=== PATIENT | male | born 1965 | race Caucasian/White ===

== ENCOUNTER 2025-06-03 15:43 | Emergency (ER) | payer OTHER ==
[~2025-06-03] VITALS: Ht 177.8 cm; Wt 98.2 kg
--- NOTE | 2025-06-03 15:52 | ERN ---
ED Note History of Present Illness Stated Complaint: WOUND CHECK TO RIGHT FOOT Chief Complaint: Wound Check Time Seen by MD: 15:45 Dictation: PATIENT IS A 59-YEAR-OLD MALE HERE FROM HIS PRIMARY CARE DOCTOR'S OFFICE WITH COMPLAINTS OF AN ULCER TO THE RIGHT MEDIAL MALLEOLAR LEG FOOT FOR THE LAST TWO WEEKS. NO FEVER NO CHILLS NO NAUSEA VOMITING. HE STATES HE HAD NORMALLY DOES NOT GO TO DOCTORS IN WENT TO A DOCTOR LAST WEEK AND JUST DISCOVERED HE HAS A TYPE 2 DIABETIC HAS A HIGH CHOLESTEROL AND HYPERTENSION. NO FEVER NO CHILLS. PATIENT HAS A STAGE II ULCER THAT IS GRANULATING WITH A DRY WOUND BED TO THE RIGHT MEDIAL MALLEOLAR. WE WILL FOLLOW UP Allergies: Coded Allergies: No Known Allergies (Unverified Allergy, Unknown, 06/03/25) Home Meds Active Scripts Clindamycin HCl (Clindamycin HCl) 300 Mg Capsule, 1 CAP PO QID for 10 Days, #40 CAP 0 Refills Prov:SHARMILA GAGNON ESCROW REPRESENTATIVE 06/03/25 Past Medical History RN Note Reviewed/Agreed w/PFSH: Yes Review of System Dictation CONSTITUTIONAL: NEGATIVE EXCEPT FOR HPI HEAD/FACE: NEGATIVE EXCEPT FOR HPI EENT: NEGATIVE EXCEPT FOR HPI RESPIRATORY: NEGATIVE EXCEPT FOR HPI GASTROINTESTINAL/ABDOMINAL: NEGATIVE EXCEPT FOR HPI GENITOURINARY: NEGATIVE EXCEPT FOR HPI MUSCULOSKELETAL: NEGATIVE EXCEPT FOR HPI INTEGUMENTARY: NEGATIVE EXCEPT FOR HPI RIGHT MEDIAL MALLEOLAR STAGE II DIABETIC ULCER NEUROLOGICAL/PSYCH: NEGATIVE EXCEPT FOR HPI HEMATOLOGIC/LYMPHATIC: NEGATIVE EXCEPT FOR HPI ALL SYSTEMS NEGATIVE, EXCEPT NOTED ABOVE. 13 POINT REVIEW OF SYSTEMS ASSESSED AND ALL NEGATIVE EXCEPT FOR ABOVE. Initial Vital Sign VS Vital Signs Date Time Temp Pulse Resp B/P (MAP) Pulse Ox O2 Delivery O2 Flow Rate FiO2 06/03/25 15:45 98.2 79 16 153/84 97 Room Air 0 06/03/25 19:58 21 Physical Exam Dictation VITAL SIGNS REVIEWED GENERAL APPEARANCE: ALERT, ORIENTED X 3, NO ACUTE DISTRESS, WELL DEVELOPED, NOURISHED. NO PAIN HEAD AND FACE: NON-TRAUMATIC. EYES: PERRL, PINK CONJUNCTIVAS, EYELID NO TRAUMA, ANTERIOR CHAMBER WITH ARCUS SENILIS. EARS: PINNAS INTACT AND NO SIGNS OF TRAUMA OR ERYTHEMA EAR CANALS CLEAR AND NO DISCHARGE TM NO ERYTHEMA NOSE: NO DISCHARGE, NO BLEEDING. OROPHARYNX: MOUTH NORMAL, TONGUE PINK, PHARYNX CLEAR,NO ERYTHEMA, TONSILS NO EXUDATES, NO ABSCESSES NOTED, MUCOUS MEMBRANE MOIST NECK: SUPPLE, NON-TENDER, NO THYROMEGALY, NO MASSES, NO JVD, NO BRUITS BREAST:DEFERRED CHEST:NO TENDERNESS, NO CREPITUS, NO PARADOXICAL MOVEMENT, NO RETRACTIONS LUNGS:CLEAR, WELL-VENTILATED, SYMMETRIC, NO RALES, NO WHEEZING, NO RHONCHI, NO STRIDOR, GOOD BREATH SOUNDS BILATERALLY HEART: REGULAR RATE, REGULAR RHYTHM, NO MURMUR, NO GALLOPS VASCULAR: NO PERIPHERAL EDEMA, ABDOMEN: SOFT, POSITIVE BOWEL SOUNDS, NONDISTENDED, NO GUARDING, NONTENDER, NO REBOUND, NO MASSES NO HEPATOMEGALY, NO SPLENOMEGALY, NO ARREOLA'S SIGN, NO HERNIAS. RECTAL: DEFERRED GENITAL: DEFERRED NEUROLOGICAL: NORMAL SPEECH, MOTOR FUNCTION INTACT, SENSORY FUNCTION INTACT MUSCULOSKELETAL: NECK NONTENDER, FULL RANGE OF MOTION, BACK NONTENDER, FULL RANGE OF MOTION, EXTREMITIES: NONTENDER, FULL RANGE OF MOTION SKIN: COLOR X 3 CM DIABETIC TO RIGHT MEDIAL MALLEOLUS. WOUND BED IS DRY. LYMPHATIC: DEFERRED Results (Laboratory/Radiology) Laboratory/Radiology Laboratory Tests Test 06/03/25 16:15 06/03/25 19:30 06/03/25 19:49 White Blood Count 7.0 K/uL (4.8-10.8) Red Blood Count 5.20 MIL/uL (4.50-6.20) Hemoglobin 17.2 g/dL (14.0-18.0) Hematocrit 49.4 % (42-54) Mean Corpuscular Volume 95.0 fL (79-99) Mean Corpuscular Hemoglobin 33.1 pg (27.0-33.0) H Mean Corpuscular Hemoglobin Concent 34.8 g/dL (32.0-36.0) Red Cell Distribution Width 13.3 % (11.0-15.5) Platelet Count 157 K/uL (130-400) Mean Platelet Volume 11.0 fL (7.5-10.5) H Immature Granulocyte % (Auto) 0.3 % (0-1) Neutrophils (%) (Auto) 65.4 % (40.0-77.0) Lymphocytes (%) (Auto) 25.3 % (21.0-51.0) Monocytes (%) (Auto) 7.4 % (3.0-13.0) Eosinophils (%) (Auto) 0.9 % (0.0-8.0) Basophils (%) (Auto) 0.7 % (0.0-5.0) Neutrophils # (Auto) 4.6 K/uL (1.8-7.7) Lymphocytes # (Auto) 1.8 K/uL (1.0-4.8) Monocytes # (Auto) 0.5 K/uL (0.1-1.0) Eosinophils # (Auto) 0.06 K/uL (0.00-0.70) Basophils # (Auto) 0.05 K/uL (0.00-0.20) Absolute Immature Granulocyte (auto 0.02 K/uL (0-1) Nucleated Red Blood Cells 0.0 % (0.0-0.19) Sodium Level 132 mmol/L (136-145) L Potassium Level 4.1 mmol/L (3.5-5.1) Chloride Level 94 mmol/L (101-111) L Carbon Dioxide Level 28 mmol/L (21-32) Blood Urea Nitrogen 16 mg/dL (7-18) Creatinine 1.4 mg/dL (0.5-1.3) H Glomerular Filtration Rate Calc 58 mL/min (>90) Random Glucose 193 mg/dL (70-105) H Lactic Acid Level 3.9 mmol/L (0.8-2.5) H 2.5 mmol/L (0.8-2.5) Total Calcium 9.6 mg/dL (8.5-10.1) Urine Color YELLOW (YELLOW) Urine Appearance CLEAR (CLEAR) Urine pH 6.0 (5.0-8.0) Urine Specific [place] 1.021 (1.001-1.031) Urine Protein 30 mg/dL (NEGATIVE) H Urine Glucose (UA) 70 mg/dL (NEGATIVE) H Urine Ketones NEGATIVE mg/dL (NEGATIVE) Urine Occult Blood SMALL (NEGATIVE) H Urine Nitrate NEGATIVE (NEGATIVE) Urine Bilirubin NEGATIVE mg/dL (NEGATIVE) Urine Urobilinogen 0.2 mg/dL (0.2-1.0) Urine Leukocyte Esterase NEGATIVE Sujata/uL Urine RBC 6-10 /HPF (0-1) H Urine WBC 2-5 /HPF (0-1) H Urine Squamous Epithelial Cells RARE /HPF (0-2) Urine Bacteria RARE /HPF (None Seen) Urine Hyaline Casts 6-10 /LPF (0-1 /LPF) H PROCEDURE: [id number] - ANKLE COMP 3VWS RT EXAM: CR right ankle, 3 View. CLINICAL HISTORY: DIABETIC ULCER TO RIGHT MEDIAL MALLEOLUS COMPARISON: None provided. FINDINGS: Soft tissue edema at the lateral malleolus. The underlying bone demonstrates appropriate radiographic appearance. And subtalar and visualized midfoot joints remain anatomically aligned. Large Lateral plate affixed to the distal fibula by screws. The ankle mortise is congruent, large plantar calcaneal spur. IMPRESSION: 1. No acute osseous abnormality. 2. Soft tissue edema at the lateral malleolus. 3. Large lateral plate affixed to distal fibula by screws. /[place] Labs Reviewed?: Yes ED Course ED Course Orders Procedure Category Date Status Time Blood Cult SANDEEP 06/03/25 In Process 15:48 Lactic Acid LAB 06/03/25 Complete 15:48 Ankle Comp 3vws Rt RAD 06/03/25 Resulted 15:48 Cbc With Differential LAB 06/03/25 Complete 15:48 Urinalysis Profile LAB 06/03/25 Complete 15:48 Basic Metabolic Panel LAB 06/03/25 Complete 15:48 Clindamycin Ivpb PHA 06/03/25 Complete 600mg/50ml (Cleocin 16:30 0.9%Nacl 1000ml (Ns PHA 06/03/25 Complete 1000ml) 16:30 Lactic Acid (Removed) LAB 06/03/25 Complete 19:23 Current Medications Medications (Trade) Dose Ordered Sig/Patricio Route PRN Reason Start Time Stop Time Status Last Admin Dose Admin Clindamycin HCl/ Dextrose 50 ml @ 100 mls/hr ONCE ONCE IV 06/03/25 16:30 06/03/25 16:59 DC 06/03/25 19:49 Sodium Chloride 2,946 ml @ 982 mls/hr ONCE ONCE IV 06/03/25 16:30 06/03/25 19:29 DC 06/03/25 19:49 Vital Signs Date Time Temp Pulse Resp B/P (MAP) Pulse Ox O2 Delivery O2 Flow Rate FiO2 06/03/25 19:58 98.4 85 18 144/87 98 Room Air* 0 21 9/22/25 15:45 98.2 79 16 153/84 97 Room Air 0 1625/ACID IS 3.9. WE WILL INITIATE FLUID RESUSCITATION WITH 30 PER KILOS OF NORMAL SALINE AND WE WILL GIVE ROCEPHIN 600 MG IV. PATIENT WILL BE MONITORED FOR HEMODYNAMIC STABILITY AND WE WILL BE ADMITTED TO THE HOSPITAL.2009/DISCUSSED CLINICAL FINDINGS TO INCLUDE LABS X-RAY. HE IS NOT WISH TO BE ADMITTED TO THE HOSPITAL. LACTIC ACID IS 2.5 BUT PATIENT IS HEMODYNAMICALLY S TABLE WHITE COUNT IS 7. PATIENT WILL BE DISCHARGED HOME TO FOLLOW UP WITH DR. BAJWA LOGISTICS SUPPLY OFFICER IN THE NEXT 1-2 DAYS. HE WILL BE PLACED ON CLINDAMYCIN AND GIVEN FURTHER WOUND CARE INSTRUCTIONS. ALL QUESTIONS AND Medical Decision Making MDM MDM: DIFFERENTIAL DIAGNOSIS: CELLULITIS/DIABETIC ULCER/SEPSIS/INFECTION/ELECTROLYTE IMBALANCE/DEHYDRATION/UNCONTROLLED DIABETES RATIONALE: TESTS CONSIDERED AND ORDERED SECONDARY TO SHARED DECISION MAKING INCLUDE: LAB/X-RAY PREVIOUS OUTSIDE RECORDS REVIEWED: OLD ER VISITS. RISK OF COMPLICATION AND/OR MORBIDITY OR MORTALITY OF PATIENT MANAGEMENT: NONE MEDICATIONS-PER MEDICATION RECONCILIATION NEED FOR HOSPITALIZATION: PATIENT DOES NOT MEET CRITERIA FOR HOSPITALIZATION. REFUSED NEED FOR EMERGENCY MAJOR/MINOR SURGERY: NO THERE ARE NO SOCIAL CONCERNS WITH THIS PATIENT. PRESCRIPTION DRUG MANAGEMENT CLINDAMYCIN PRESCRIPTIONS WILL INCLUDE SYMPTOMATIC CARE PATIENT'S PRIOR EXTERNAL MEDICAL RECORDS FROM OTHER ER VISITS WERE REVIEWED BY ME INDICATED. PRIOR TESTING AND RESULTS FROM PREVIOUS VISITS WERE REVIEWED. PRIOR TESTS WERE TAKEN INTO ACCOUNT WITH MEDICAL DECISION MAKING AND RESOURCE UTILIZATION, INDEPENDENT HISTORIAN/HISTORIANS WERE USED TO OBTAIN COMPLETE MEDICAL HISTORY. I INDEPENDENTLY INTERPRETED THE TEST THAT WERE PERFORMED, RESULTS WERE REVIEWED BY ME AND CONSIDERED FINDINGS ON RADIOLOGY IF ORDERED. MEDICAL MANAGEMENT AND EXAMINATION INTERPRETATION DISCUSSIONS WERE HAD BY ME WITH OTHER QUALIFIED HEALTHCARE PROFESSIONALS INDICATED FOR THE PATIENT'S CARE. DX & DISP Disposition: Discharge Departure Impression: Primary Impression: Diabetic ulcer of right lower leg Additional Impressions: Diabetes mellitus with hyperglycemia, Hyponatremia, Stage 3 chronic kidney disease, Elevated lactic acid level Condition: Stable Scripts Clindamycin HCl (Clindamycin HCl) 300 Mg Capsule 1 CAP PO QID for 10 Days, #40 CAP 0 Refills Prov: SHARMILA GAGNON ESCROW REPRESENTATIVE 06/03/25 Additional Instructions: FOLLOW-UP WITH PRIMARY CARE PROVIDER IN 1 TO 2 DAYS. TAKE MEDICATIONS DIRECTED HERE IN THE EMERGENCY ROOM. OKAY TO CONTINUE HOME MEDICATIONS UNLESS OTHERWISE DISCUSSED DURING YOUR VISIT IN THE EMERGENCY ROOM TODAY. RETURN TO YOUR NEAREST EMERGENCY ROOM IF SYMPTOMS WORSEN OR IF THERE IS NO IMPROVEMENT. CALL 911 IF YOU NEED IMMEDIATE ASSISTANCE. TAKE TYLENOL OR MOTRIN [id number] NEEDED AND IF NO CONTRAINDICATIONS ARE PRESENT. INCREASE ORAL HYDRATION. A WOUND CULTURE OR URINE CULTURE WAS ORDERED HERE IN THE EMERGENCY ROOM DEPARTMENT PLEASE FOLLOW-UP WITH PRIMARY CARE PROVIDER AND ADVISE THEM TO GET REPEAT PORTS FROM OUR FACILITY. IF YOU HAD ANY DELROY WRAP/SPLINTS THAT WERE APPLIED HERE, PLEASE DO NOT REMOVE THEM UNTIL YOU SEE YOUR PRIMARY CARE OR SPECIALTY. TAKE CLINDAMYCIN DIRECTED UNTIL GONE. CALL DR. BAJWA, LOGISTICS SUPPLY OFFICER TOMORROW FOR AN APPOINTMENT AND FOLLOW UP. Referrals: SELF,REFERRAL (PCP) ISIAH BAJWA MD Time of Disposition: 20:15 I have reviewed the case, and I agree with, Diagnosis and Plan I performed a substantive portion of the visit. I have reviewed and personally made and approve the management plan that is documented in the notes by myself with DARRYL/resident. I acknowledged full responsibility for the patient's management plan. SHARMILA GAGNON NP Jun 03, 2025 15:52 PHILIP SÁNCHEZ DO Jun 04, 2025 08:19
[2025-06-03 16:22] LABS: IMMATURE GRANULOCYTE ABSOLUTE 0.02 K/uL (0-1); NUCLEATED RED BLOOD CELLS 0.0 % (0.0-0.19); PLATELET COUNT (AUTO) 157 K/uL (130-400); RED BLOOD CELL COUNT(AUTO) 5.20 MIL/uL (4.50-6.20); RED CELL DISTRIBUTION WIDTH 13.3 % (11.0-15.5); WHITE BLOOD COUNT (AUTO) 7.0 K/uL (4.8-10.8)
[2025-06-03 16:32] LABS: CREATININE 1.4 mg/dL (0.5-1.3); GLOMERULAR FILTR. RATE CALC 58.0 mL/min (>90); GLUCOSE,RANDOM 193.0 mg/dL (70-105); SODIUM SERUM 132.0 mmol/L (136-145); UREA NITROGEN, BLOOD 16.0 mg/dL (7-18)
--- NOTE | 2025-06-03 18:41 | HMCIMG ---
EXAM: CR right ankle, 3 View. CLINICAL HISTORY: DIABETIC ULCER TO RIGHT MEDIAL MALLEOLUS COMPARISON: None provided. FINDINGS: Soft tissue edema at the lateral malleolus. The underlying bone demonstrates appropriate radiographic appearance. And subtalar and visualized midfoot joints remain anatomically aligned. Large Lateral plate affixed to the distal fibula by screws. The ankle mortise is congruent, large plantar calcaneal spur. IMPRESSION: 1. No acute osseous abnormality. 2. Soft tissue edema at the lateral malleolus. 3. Large lateral plate affixed to distal fibula by screws. /[place]
[2025-06-03 19:39] LABS: APPEARANCE,URINE CLEAR (CLEAR); GLUCOSE, URINE (UA) 70 mg/dL (NEGATIVE); LEUKOCYTE ESTERASE ,URINE NEGATIVE Leu/uL (NEGATIVE); NITRATE,URINE NEGATIVE (NEGATIVE); OCCULT BLOOD,URINE SMALL (NEGATIVE)
[2025-06-03 19:40] LABS: ADD UA MICROSCOPIC YES
[2025-06-03 19:42] LABS: SQUAMOUS EPITHELIAL CELL,UR RARE /HPF (0-2)
[2025-06-03] MEDS: [UNRECOGNIZED DRUG - OTHER] IV ONE (19:49)
[2025-06-03] MEDS: CLINDAMYCIN IVPB 600MG/50ML 50 ML IV ONE (19:49)
[2025-06-03 19:58] VITALS: BP 144/87; PULSE 85; RESP 18; TEMP 98.4; O2SAT 98
[2025-06-03] MEDS ORDERED: CLIN-141 PO (20:16)
== END 2025-06-03 20:48 | disposition home or self-care (01) ==
LOC: EDH 15:43
DX: L97.819 Non-pressure chronic ulcer of other part of right lower leg with unspecified severity (principal); E11.621 Type 2 diabetes mellitus with foot ulcer; E11.65 Type 2 diabetes mellitus with hyperglycemia; E87.20 Acidosis, unspecified; I12.9 Hypertensive chronic kidney disease with stage 1 through stage 4 chronic kidney disease, or unspecified chronic kidney disease; E11.22 Type 2 diabetes mellitus with diabetic chronic kidney disease; N18.30 Chronic kidney disease, stage 3 unspecified; E87.1 Hypo-osmolality and hyponatremia; Z79.899 Other long term (current) drug therapy
CPT/HCPCS: 99284; 96374; 80048; 85025; 87040 ×2; 83605 ×2; 81001; 36415; 73610; J7030; J3490